=== PATIENT | female | born 1950 | race Caucasian/White ===

== ENCOUNTER 2018-05-01 20:05 | Emergency (ER) | payer MEDICARE, BC ==
[~2018-05-01] VITALS: Ht 162.6 cm; Wt 65.8 kg
--- NOTE | 2018-05-01 20:16 | NUR ---
DR. HICKEY AT BEDSIDE FOR MSE.
[2018-05-01] MEDS ORDERED: TDAP DIPH,PERTUSS,TET VAC/PF 0.5 ML DISP.SYRIN IM ONE ×2 (20:30→20:41)
--- NOTE | 2018-05-01 21:20 | NUR ---
SUTURES DONE TO LEFT EYE BY DR. HICKEY
[2018-05-01 21:21] VITALS: BP 147/73
--- NOTE | 2018-05-01 21:21 | NUR ---
Patient discharged to home in stable conditon. Written and verbal after care instructions given. Patient verbalizes understanding of instructions. PATIENT LEFT WITH STABLE GAIT.
== END 2018-05-01 21:22 | disposition home or self-care (01) ==
LOC: ER 20:09
DX: S01.81XA Laceration without foreign body of other part of head, initial encounter (principal); S60.222A Contusion of left hand, initial encounter; S09.90XA Unspecified injury of head, initial encounter; W01.198A Fall on same level from slipping, tripping and stumbling with subsequent striking against other object, initial encounter; Y93.89 Activity, other specified; Y92.89 Other specified places as the place of occurrence of the external cause; Y99.8 Other external cause status
CPT/HCPCS: 12013; 70450; 73130; 90471; 90715; 99284; A4663; J3490

== ENCOUNTER 2018-05-06 20:08 | Emergency (ER) | payer MEDICARE, BC ==
[~2018-05-06] VITALS: Ht 157.5 cm; Wt 59.0 kg
--- NOTE | 2018-05-06 20:35 | NUR ---
3 SUTURES REMOVED ON LEFT EYEBROW.
--- NOTE | 2018-05-06 20:41 | NUR ---
Patient discharged to home in stable conditon. Written and verbal after care instructions given. Patient verbalizes understanding of instructions.
[2018-05-06 20:42] VITALS: BP 134/89
== END 2018-05-06 20:42 | disposition home or self-care (01) ==
LOC: ER 20:10
DX: S01.112D Laceration without foreign body of left eyelid and periocular area, subsequent encounter (principal); Z48.02 Encounter for removal of sutures; X58.XXXD Exposure to other specified factors, subsequent encounter
CPT/HCPCS: 99281; A4663